=== PATIENT | female | born 1930 | race Caucasian/White ===

== ENCOUNTER 2018-08-14 04:26 | Inpatient (IN) | payer OTHER ==
[2018-08-14] VITALS (11 sets, daily range): BP systolic 90–152; BP diastolic 46–87
[~2018-08-14] VITALS: Ht 162.6 cm; Wt 86.0 kg
[~2018-08-14 04:26] MED LIST: ACT15 PO; DIOVAN PO; FENOFIBRATE43 MG PO; GLU5 PO; HYDROCODONE/ACETAMIN PO; L40 PO; LOP100 PO; ROC0.5 PO; ZETIA PO; [UNRECOGNIZED DRUG - CODE] PO
[2018-08-14 05:36] LABS: microscopic required? YES; urine erythrocyte 2+ (NEGATIVE)
[2018-08-14 05:43] LABS: PLATELET COUNT 130 x10^3mcL (130-400); RED CELL DISTRIBUTION WIDTH 13.2 % (11.5-14.5)
[2018-08-14 05:44] LABS: BASOPHIL % 0 % (0-2)
[2018-08-14 05:48] LABS: CALCIUM 9.5 mg/dL (8.5-10.1); CARBON DIOXIDE 27.4 mmol/L (21-32); CHLORIDE SERUM 101 mmol/L (98-107); CREATININE SERUM 1.5 mg/dL (0.6-1.0); GLUCOSE SERUM 174 mg/dL (74-106); POTASSIUM SERUM 4.1 mmol/L (3.5-5.1); SODIUM SERUM 135 mmol/L (136-145)
[2018-08-14 06:07] LABS: CK-MB 0.7 ng/mL (0-3.6)
[2018-08-14 06:08] LABS: ALKALINE PHOSPHATASE 135 U/L (46-116); ALT/SGPT 31 U/L (14-59); AST/SGOT 36 U/L (15-37); BILIRUBIN TOTAL 0.86 mg/dL (0.20-1.00); TOTAL PROTEIN, SERUM 7.3 g/dL (6.4-8.2)
[2018-08-14 06:09] LABS: ALBUMIN 2.8 g/dL (3.4-5.0)
[2018-08-15] VITALS (17 sets, daily range): BP systolic 100–151; BP diastolic 45–101
[2018-08-15 05:08] LABS: RED CELL DISTRIBUTION WIDTH 13.3 % (11.5-14.5)
[2018-08-15 05:10] LABS: PLATELET COUNT 104 x10^3mcL (130-400)
[2018-08-15 05:15] LABS: ALKALINE PHOSPHATASE 92 U/L (46-116); ALT/SGPT 87 U/L (14-59); AST/SGOT 72 U/L (15-37); BILIRUBIN TOTAL 1.24 mg/dL (0.20-1.00); CALCIUM 9.2 mg/dL (8.5-10.1); CHLORIDE SERUM 102 mmol/L (98-107); CREATININE SERUM 1.9 mg/dL (0.6-1.0); GLUCOSE SERUM 98 mg/dL (74-106); POTASSIUM SERUM 3.7 mmol/L (3.5-5.1); SODIUM SERUM 137 mmol/L (136-145)
[2018-08-15 05:16] LABS: TOTAL PROTEIN, SERUM 5.9 g/dL (6.4-8.2)
[2018-08-15 05:46] LABS: BAND NEUTROPHIL 15 % (0-10); BASOPHIL 0 % (0-2); MONOCYTE 6 % (0-7); SEGMENTED NEUTROPHILS 73 % (37-75); rbc morphology (normal/abnorm) NORMAL (NORMAL)
[2018-08-15 05:47] LABS: PLATELET MORPHOLOGY PLATELETS DECREASED
[2018-08-16] VITALS (11 sets, daily range): BP systolic 106–151; BP diastolic 49–96
[2018-08-16 05:36] LABS: PLATELET COUNT 134 x10^3mcL (130-400); RED CELL DISTRIBUTION WIDTH 13.4 % (11.5-14.5)
[2018-08-16 05:51] LABS: ALKALINE PHOSPHATASE 117 U/L (46-116); ALT/SGPT 65 U/L (14-59); AST/SGOT 44 U/L (15-37); BILIRUBIN DIRECT 0.37 mg/dL (0.0-0.2); BILIRUBIN TOTAL 0.66 mg/dL (0.20-1.00); CALCIUM 9.3 mg/dL (8.5-10.1); CARBON DIOXIDE 27.4 mmol/L (21-32); CHLORIDE SERUM 101 mmol/L (98-107); CREATININE SERUM 1.9 mg/dL (0.6-1.0); GLUCOSE SERUM 143 mg/dL (74-106); POTASSIUM SERUM 3.4 mmol/L (3.5-5.1); SODIUM SERUM 137 mmol/L (136-145); TOTAL PROTEIN, SERUM 6.7 g/dL (6.4-8.2)
[2018-08-16 05:58] LABS: BAND NEUTROPHIL 12 % (0-10); BASOPHIL 0 % (0-2); MONOCYTE 4 % (0-7); SEGMENTED NEUTROPHILS 80 % (37-75)
[2018-08-16 05:59] LABS: PLATELET MORPHOLOGY PLATELETS DECREASED; rbc morphology (normal/abnorm) NORMAL (NORMAL)
[2018-08-16] MEDS ORDERED: ALPRAZOLAM0.25 MG PO (16:46)
[2018-08-16] MEDS ORDERED: FERROUS SULFAT325 M2 PO (16:47)
[2018-08-16] MEDS ORDERED: LOSARTAN POTASS1 TA6 PO (16:47)
[2018-08-17] VITALS (16 sets, daily range): BP systolic 109–151; BP diastolic 41–77; Ht 162.6 cm; Wt 86.0 kg
[2018-08-17 05:46] LABS: PLATELET COUNT 134 x10^3mcL (130-400); RED CELL DISTRIBUTION WIDTH 13.4 % (11.5-14.5)
[2018-08-17 05:54] LABS: ALKALINE PHOSPHATASE 122 U/L (46-116); ALT/SGPT 54 U/L (14-59); AST/SGOT 39 U/L (15-37); BILIRUBIN TOTAL 0.82 mg/dL (0.20-1.00); CALCIUM 9.4 mg/dL (8.5-10.1); CARBON DIOXIDE 26.2 mmol/L (21-32); CHLORIDE SERUM 105 mmol/L (98-107); CREATININE SERUM 1.3 mg/dL (0.6-1.0); GLUCOSE SERUM 151 mg/dL (74-106); POTASSIUM SERUM 3.6 mmol/L (3.5-5.1); SODIUM SERUM 142 mmol/L (136-145); TOTAL PROTEIN, SERUM 6.2 g/dL (6.4-8.2)
[2018-08-17 06:05] LABS: ALBUMIN 2.2 g/dL (3.4-5.0)
[2018-08-17 06:07] LABS: SEGMENTED NEUTROPHILS 90 % (37-75)
[2018-08-17 06:08] LABS: MONOCYTE 5 % (0-7); rbc morphology (normal/abnorm) ABNORMAL (NORMAL)
[2018-08-17 06:09] LABS: PLATELET MORPHOLOGY PLATELETS DECREASED
[2018-08-18 03:15] VITALS: BP 123/78
[2018-08-18 06:22] LABS: ALKALINE PHOSPHATASE 113 U/L (46-116); ALT/SGPT 52 U/L (14-59); AST/SGOT 52 U/L (15-37); BILIRUBIN TOTAL 0.75 mg/dL (0.20-1.00); CALCIUM 10.1 mg/dL (8.5-10.1); CARBON DIOXIDE 29.7 mmol/L (21-32); CHLORIDE SERUM 104 mmol/L (98-107); CREATININE SERUM 1.6 mg/dL (0.6-1.0); GLUCOSE SERUM 167 mg/dL (74-106); SODIUM SERUM 144 mmol/L (136-145)
[2018-08-18 06:25] LABS: ALBUMIN 2.2 g/dL (3.4-5.0)
[2018-08-18 06:27] LABS: POTASSIUM SERUM 2.7 mmol/L (3.5-5.1)
[2018-08-18 06:32] LABS: BASOPHIL % 0 % (0-2); PLATELET COUNT 145 x10^3mcL (130-400); RED CELL DISTRIBUTION WIDTH 13.7 % (11.5-14.5)
[2018-08-18 08:00] VITALS: BP 156/70
[2018-08-18 12:00] VITALS: BP 147/85
[2018-08-18 16:00] VITALS: BP 130/75
[2018-08-18 20:54] VITALS: BP 170/88
[2018-08-18 22:05] VITALS: BP 144/77
[2018-08-19 05:48] VITALS: BP 169/83
[2018-08-19 06:15] LABS: PLATELET COUNT 172 x10^3mcL (130-400); RED CELL DISTRIBUTION WIDTH 13.7 % (11.5-14.5)
[2018-08-19 06:33] LABS: ALKALINE PHOSPHATASE 111 U/L (46-116); ALT/SGPT 62 U/L (14-59); AST/SGOT 58 U/L (15-37); BILIRUBIN TOTAL 0.55 mg/dL (0.20-1.00); CALCIUM 10.3 mg/dL (8.5-10.1); CARBON DIOXIDE 31.7 mmol/L (21-32); CHLORIDE SERUM 110 mmol/L (98-107); CREATININE SERUM 1.6 mg/dL (0.6-1.0); GLUCOSE SERUM 214 mg/dL (74-106); MAGNESIUM 2.1 mg/dL (1.8-2.4); POTASSIUM SERUM 3.3 mmol/L (3.5-5.1); SODIUM SERUM 149 mmol/L (136-145); TOTAL PROTEIN, SERUM 6.9 g/dL (6.4-8.2)
[2018-08-19 06:36] LABS: BASOPHIL % 0 % (0-2)
[2018-08-19 06:45] LABS: ALBUMIN 2.2 g/dL (3.4-5.0)
[2018-08-19 08:41] VITALS: BP 175/74
[2018-08-19 18:05] VITALS: BP 157/76
[2018-08-19 20:36] VITALS: BP 152/65
[2018-08-20] VITALS (8 sets, daily range): BP systolic 114–188; BP diastolic 39–98
[2018-08-20 06:41] LABS: BASOPHIL % 0.2 % (0-2); PLATELET COUNT 174 x10^3mcL (130-400); RED CELL DISTRIBUTION WIDTH 13.9 % (11.5-14.5)
[2018-08-20 06:43] LABS: CALCIUM 10.2 mg/dL (8.5-10.1); CARBON DIOXIDE 29.8 mmol/L (21-32); CHLORIDE SERUM 105 mmol/L (98-107); CREATININE SERUM 1.4 mg/dL (0.6-1.0); GLUCOSE SERUM 216 mg/dL (74-106); SODIUM SERUM 139 mmol/L (136-145)
[2018-08-20] MEDS ORDERED: XARELTO10 M1 PO (08:55)
[2018-08-20] MEDS ORDERED: CARDIZEM CD180 MG PO (08:55)
[2018-08-20] MEDS ORDERED: LEVOFLOXACIN500 M1 PO (08:56)
[2018-08-21 05:16] VITALS: BP 151/77
[2018-08-21 08:00] VITALS: BP 154/85
[2018-08-21 13:17] VITALS: BP 159/84
== END 2018-08-21 14:30 | DRG 208 ==
LOC: IC → ED 04:26 → EDBD 04:26 → DU 06:51 → IC 06:51 → DU 08-18 17:25
PROVIDERS: Emergency Medicine; Internal Medicine; Internal Medicine Pulmonary Disease; ADMIT Internal Medicine
PROC: 5A1945Z Respiratory Ventilation, 24-96 Consecutive Hours (ICD-10-PCS; principal; 2018-08-14)
PROC: 0BH17EZ Insertion of Endotracheal Airway into Trachea, Via Natural or Artificial Opening (ICD-10-PCS; 2018-08-14)
DX: J96.00 Acute respiratory failure, unspecified whether with hypoxia or hypercapnia (principal); J18.9 Pneumonia, unspecified organism; N17.9 Acute kidney failure, unspecified; E87.0 Hyperosmolality and hypernatremia; I13.0 Hypertensive heart and chronic kidney disease with heart failure and stage 1 through stage 4 chronic kidney disease, or unspecified chronic kidney disease; I50.9 Heart failure, unspecified; E11.22 Type 2 diabetes mellitus with diabetic chronic kidney disease; N18.3 Chronic kidney disease, stage 3 (moderate); I48.91 Unspecified atrial fibrillation; E87.6 Hypokalemia; R54 Age-related physical debility; F41.9 Anxiety disorder, unspecified; Z68.33 Body mass index [BMI] 33.0-33.9, adult
CPT/HCPCS: 36600; 82962; 83880; 87804; 92526-GN; 92610-GN; 97110-GP; 97112-GP; 97116-GP; 97530-GP; A4628; C9113; J0360; J0456; J0696; J1644; J1815; J1940; J1956; J2270; J2704; J3480; J3490; J7030; J7620; Q0092

== ENCOUNTER 2019-06-26 16:01 | Inpatient (IN) | payer OTHER ==
[~2019-06-26] VITALS: Ht 152.4 cm; Wt 94.0 kg
[~2019-06-26 16:01] MED LIST changes: -ACT15 PO; +ALPRAZOLAM0.25 MG PO; +CARDIZEM CD180 MG PO; +FERROUS SULFAT325 M2 PO; -GLU5 PO; +LEVOFLOXACIN500 M1 PO; +LOSARTAN POTASS1 TA6 PO; +XARELTO10 M1 PO
[2019-06-26 17:38] LABS: ALKALINE PHOSPHATASE 134 U/L (46-116); ALT/SGPT 24 U/L (14-59); AST/SGOT 22 U/L (15-37); BILIRUBIN TOTAL 0.4 mg/dL (0.20-1.00); CALCIUM 9.5 mg/dL (8.5-10.1); CARBON DIOXIDE 25.5 mmol/L (21-32); CHLORIDE SERUM 107 mmol/L (98-107); CREATININE SERUM 1.4 mg/dL (0.6-1.0); POTASSIUM SERUM 4.3 mmol/L (3.5-5.1); SODIUM SERUM 140 mmol/L (136-145); TOTAL PROTEIN, SERUM 7.5 g/dL (6.4-8.2)
[2019-06-26 17:40] LABS: ALBUMIN 2.9 g/dL (3.4-5.0)
[2019-06-26 17:41] LABS: GLUCOSE SERUM 47 mg/dL (74-106)
[2019-06-26 17:42] LABS: BASOPHIL % 0.3 % (0-2); PLATELET COUNT 160 x10^3mcL (130-400); RED CELL DISTRIBUTION WIDTH 13.6 % (11.5-14.5)
[2019-06-26 20:13] VITALS: BP 199/88
[2019-06-26 20:22] VITALS: Ht 152.4 cm; Wt 94.0 kg
[2019-06-26 20:44] VITALS: BP 100/54
[2019-06-27 00:28] LABS: microscopic required? YES; urine erythrocyte 1+ (NEGATIVE)
[2019-06-27 05:00] VITALS: BP 186/80
[2019-06-27 06:36] LABS: CALCIUM 9.4 mg/dL (8.5-10.1); CARBON DIOXIDE 25.8 mmol/L (21-32); CHLORIDE SERUM 107 mmol/L (98-107); CREATININE SERUM 1.4 mg/dL (0.6-1.0); GLUCOSE SERUM 236 mg/dL (74-106); MAGNESIUM 1.9 mg/dL (1.8-2.4); PHOSPHOROUS 2.8 mg/dL (2.5-4.9); POTASSIUM SERUM 4.5 mmol/L (3.5-5.1); SODIUM SERUM 141 mmol/L (136-145)
[2019-06-27 06:51] LABS: BASOPHIL % 0.1 % (0-2); PLATELET COUNT 156 x10^3mcL (130-400); RED CELL DISTRIBUTION WIDTH 13.9 % (11.5-14.5)
[2019-06-27 08:46] VITALS: BP 180/112
[2019-06-27 12:29] VITALS: BP 153/72
[2019-06-27 17:09] VITALS: BP 155/61
[2019-06-27 21:16] VITALS: BP 167/68
[2019-06-28 06:04] VITALS: BP 141/87
[2019-06-28 07:11] LABS: BASOPHIL % 0.3 % (0-2); PLATELET COUNT 155 x10^3mcL (130-400); RED CELL DISTRIBUTION WIDTH 13.6 % (11.5-14.5)
[2019-06-28 08:01] LABS: ALKALINE PHOSPHATASE 120 U/L (46-116); ALT/SGPT 24 U/L (14-59); AST/SGOT 14 U/L (15-37); BILIRUBIN TOTAL 0.74 mg/dL (0.20-1.00); CALCIUM 10.1 mg/dL (8.5-10.1); CARBON DIOXIDE 26.2 mmol/L (21-32); CHLORIDE SERUM 106 mmol/L (98-107); CREATININE SERUM 1.7 mg/dL (0.6-1.0); GLUCOSE SERUM 144 mg/dL (74-106); MAGNESIUM 2.1 mg/dL (1.8-2.4); POTASSIUM SERUM 4.1 mmol/L (3.5-5.1); SODIUM SERUM 141 mmol/L (136-145)
[2019-06-28 08:02] LABS: ALBUMIN 2.7 g/dL (3.4-5.0)
[2019-06-28 09:28] VITALS: BP 171/74
[2019-06-28] MEDS ORDERED: ACT15 PO (11:34)
[2019-06-28] MEDS ORDERED: GLU5 PO (11:34)
[2019-06-28 12:52] VITALS: BP 142/65
[2019-06-28 14:06] VITALS: BP 142/65
[2019-06-28 17:17] VITALS: BP 121/67; BP 1231/67
== END 2019-06-28 18:20 | disposition home health service (06) | DRG 638 ==
LOC: ED 16:01 → MU 18:46 → DU 18:46
PROVIDERS: Emergency Medicine; Internal Medicine Pulmonary Disease; ADMIT Internal Medicine Nephrology
DX: E11.649 Type 2 diabetes mellitus with hypoglycemia without coma (principal); Z68.41 Body mass index [BMI] 40.0-44.9, adult; F05 Delirium due to known physiological condition; I10 Essential (primary) hypertension; R54 Age-related physical debility; F03.90 Unspecified dementia, unspecified severity, without behavioral disturbance, psychotic disturbance, mood disturbance, and anxiety; F41.9 Anxiety disorder, unspecified; Z79.4 Long term (current) use of insulin
CPT/HCPCS: 82962; G0378; J2060